=== PATIENT | female | born 1995 | race African-American/Black ===

== ENCOUNTER 2018-03-30 06:40 | Inpatient (IN) ==
[2018-03-30 07:32] LABS: Baso % (Auto) 0.3 % (0.0-2.0); Hematocrit 31.3 % (35.0-46.0); Lymph # (Auto) 1.5 th/mm3 (1.0-4.8); Lymph % (Auto) 21.5 % (9.0-44.0); Mean Corpuscular Hemoglobin 24.3 pg (27.0-34.0); Mean Corpuscular Volume 75.9 fL (80.0-100.0); Mean Platelet Volume 7.7 fL (7.0-11.0); Mono # (Auto) 0.8 th/mm3 (0.0-0.9); Mono % (Auto) 11.3 % (0.0-8.0); Neut # (Auto) 4.6 th/mm3 (1.8-7.7); Neut % (Auto) 66.9 % (16.0-70.0); Platelet Count 306 th/mm3 (150-450); Red Blood Count 4.12 mil/mm3 (4.00-5.30); Red Cell Distribution Width 15.4 % (11.6-17.2); White Blood Count 6.9 th/mm3 (4.0-11.0)
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
[2018-03-30 07:47] LABS: Amphetamine Screen,Urine Neg (Neg); Barbiturate Screen,Urine Neg (Neg); Cannabinoid Screen,Urine Pos (Neg); Cocaine Screen,Urine Neg (Neg)
[2018-03-30 07:50] LABS: Alanine Aminotransferase 26 U/L (9-42); Albumin 4.1 g/dL (3.4-5.0); Anion Gap 9 meq/L (5-15); Aspartate Aminotransferase 41 U/L (16-38); Blood Urea Nitrogen 11 mg/dL (7-18); Calcium 8.8 mg/dL (8.5-10.1); Carbon Dioxide 23.3 meq/L (21.0-32.0); Chloride 107 meq/L (98-107); Glomerular Filtration Rate 79 mL/min (>89); Glucose,Random 109 mg/dL (74-106); Magnesium 1.9 mg/dL (1.5-2.5); Potassium 3.2 meq/L (3.5-5.1); Sodium 139 meq/L (136-145)
[2018-03-30 07:51] LABS: Opiate Screen,Urine Neg (Neg)
[2018-03-30] MEDS ORDERED: Haloperidol Inj 5 MG/ML Ampul IM ONE ×2 (07:52→15:40)
[2018-03-30 08:00] LABS: Alkaline Phosphatase 71 U/L (45-117)
--- NOTE | 2018-03-30 15:38 | ED ---
HPI - Psych - General Source: patient, police Mode of arrival: other (police) Limitations: no limitations - History of Present Illness Duration: changing over time History of same: No - General Chief Complaint: Psychiatric Symptoms Stated Complaint: etoh/DBPD Time Seen by Provider: 03/30/18 06:49 - Related Data Home Medications Medication Instructions Recorded Confirmed No Known Home Medications 03/30/18 03/30/18 Allergies Allergy/AdvReac Type Severity Reaction Status Date / Time No Known Allergies Allergy Verified 03/30/18 06:49 PMFSH - History History Provided By: Patient - Medical History Medical History: Medical History (Last Reviewed 03/30/18 @ 07:34 by Evelyne Peña) Patient denies medical problems - Surgical History Surgical History: Surgical History (Last Reviewed 03/30/18 @ 07:35 by Evelyne Peña) No history of previous surgery - Tobacco History Second Hand Smoke Exposure: Yes Tobacco Use In Past 30 Days: Yes Smoking Status: Current every day smoker Tobacco Type: Cigarettes - Alcohol History How Often Do You Have a Drink Containing Alcohol: Never - Substance Use History Substance History: Active Abuse - Substance Use Type Marijuana Route Used: Inhalation Reason for Use: Calm Down, Feels Good - Travel History Recent Travel in the [place] Within the Last 8 Weeks: No Recent Travel Out of the Country Within the Last 8 Weeks: No - Immunization History Tetanus Immunization: >5 Years Physical Exam - General Limitations: altered mental status Initial Documented Vital Signs Temperature 98.5 F 03/30/18 06:47 Pulse Rate 108 H 03/30/18 06:47 Respiratory Rate 18 03/30/18 06:47 Blood Pressure 139/80 03/30/18 06:47 Pulse Oximetry 100 03/30/18 06:47 Last Documented Vital Signs Temperature 98.0 F 03/30/18 13:00 Pulse Rate 68 03/30/18 13:00 Respiratory Rate 16 03/30/18 13:00 Blood Pressure 122/85 03/30/18 13:00 Pulse Oximetry 100 03/30/18 13:00 MDM - Psych - Lab Data Result diagrams: 03/30/18 07:05 03/30/18 07:05 - Lab Data Lab Results 03/30/18 03/30/18 03/30/18 Range/Units 07:05 07:05 07:19 WBC 6.9 (4.0-11.0) th/mm3 RBC 4.12 (4.00-5.30) mil/mm3 Hgb 10.0 L (11.6-15.3) gm/dL Hct 31.3 L (35.0-46.0) % MCV 75.9 L (80.0-100.0) fL MCH 24.3 L (27.0-34.0) pg MCHC 32.0 (32.0-36.0) % RDW 15.4 (11.6-17.2) % Plt Count 306 (150-450) th/mm3 MPV 7.7 (7.0-11.0) fL Neut % (Auto) 66.9 (16.0-70.0) % Lymph % (Auto) 21.5 (9.0-44.0) % [place] % (Auto) 11.3 H (0.0-8.0) % Eos % (Auto) 0.0 (0.0-4.0) % Baso % (Auto) 0.3 (0.0-2.0) % Neut # (Auto) 4.6 (1.8-7.7) th/mm3 Lymph # (Auto) 1.5 (1.0-4.8) th/mm3 [place] # (Auto) 0.8 (0.0-0.9) th/mm3 Eos # (Auto) 0.0 (0.0-0.4) th/mm3 Baso # (Auto) 0.0 (0.0-0.2) th/mm3 WBC Differential . Differential Comment Auto diff final Sodium 139 (136-145) meq/L Potassium 3.2 L (3.5-5.1) meq/L Chloride 107 (98-107) meq/L Carbon Dioxide 23.3 (21.0-32.0) meq/L Anion Gap 9 (5-15) meq/L BUN 11 (7-18) mg/dL Creatinine 0.91 (0.50-1.00) mg/dL Estimated GFR 79 L (>89) mL/min Random Glucose 109 H (74-106) mg/dL Calcium 8.8 (8.5-10.1) mg/dL Magnesium 1.9 (1.5-2.5) mg/dL Total Bilirubin 0.5 (0.2-1.0) mg/dL AST 41 H (16-38) U/L ALT 26 (9-42) U/L Alkaline Phosphatase 71 (45-117) U/L Total Protein 8.0 (6.4-8.2) g/dL Albumin 4.1 (3.4-5.0) g/dL TSH 1.440 (0.358-3.740) uIU/mL Urine Opiates Screen Neg (Neg) Ur Barbiturates Screen Neg (Neg) Ur Amphetamines Screen Neg (Neg) U Benzodiazepines Scrn Neg (Neg) Urine Cocaine Screen Neg (Neg) U Cannabinoids Screen Pos H (Neg) Serum Alcohol Less than 3 (0-5) mg/dL
[2018-03-31] MEDS ORDERED: Haloperidol Inj 5 MG/ML Ampul ONE ×2 (06:07→08:07)
[2018-03-31] MEDS ORDERED: OLANZapine 10 MG ODT Tablet PO ONE (06:29)
[2018-03-31] MEDS ORDERED: Haloperidol Inj 5 MG/ML Ampul IM ONE (07:59)
[2018-03-31] MEDS ORDERED: Haloperidol Inj 5 MG/ML Ampul IV.PUSH PRN (08:10)
[2018-03-31] MEDS ORDERED: Bisacodyl 10 MG Supp RECTAL PRN (08:10)
[2018-03-31] MEDS ORDERED: Aluminum/Magnesium/Simethacone Susp 30 ML UDC PO PRN (08:10)
[2018-03-31] MEDS: Senna/Docusate Sodium 8.6/50 MG Tablet PO SCH ×2 (12:31→21:06)
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
[2018-04-01] MEDS: Senna/Docusate Sodium 8.6/50 MG Tablet PO SCH ×2 (08:36→20:39)
[2018-04-01 10:31] LABS: Anion Gap 13 meq/L (5-15); Blood Urea Nitrogen 11 mg/dL (7-18); Calcium 9.1 mg/dL (8.5-10.1); Carbon Dioxide 23.5 meq/L (21.0-32.0); Chloride 104 meq/L (98-107); Glomerular Filtration Rate Greater Than 89 mL/min (>89); Glucose,Random 63 mg/dL (74-106); Potassium 3.1 meq/L (3.5-5.1); Sodium 140 meq/L (136-145)
[2018-04-01 10:37] LABS: Chol/HDL Ratio 1.94 Ratio; Cholesterol 155 mg/dL (120-200); HDL Cholesterol 79.8 mg/dL (40.0-60.0); LDL Cholesterol,Calculated 64 mg/dL (0-99); Triglycerides 54 mg/dL (42-150)
[2018-04-01] MEDS ORDERED: Haloperidol Inj 5 MG/ML Ampul IM ONE (10:45)
--- NOTE | 2018-04-01 10:45 | P.CONPSY ---
Provisional Diagnosis Admission Date: March 31, 2018 08:16 [place] I.: Unspecified psychosis,r/o substance-induced psychosis, r/o bipolar disorder, manic episode , r/o schizophrenia, cannabis use disorder, [place] II.: Cluster B traits, rule out borderline personality disorder [place] III.: No significant medical history History of Present Illness Service: Psychiatry Primary Care Provider: UNKNOWN History of Present Illness: HPI: 22-year-old -[place] female who after work in a local [employer] was wandering about knocking on doors and asking people if they had a manager auto for her cell phone. She claims in incredible circum-substantial pressured rapidfire speech that the police picked her up and brought her to the ED. The police report states that she was lying in the street. Patient admits to daily use of marijuana and alcohol but denies use of cocaine. Patient lives with her grandfather who she claims is schizophrenic and is dying of cardiac disease while using cocaine. At the point of describing her grandfathers eminent demise the patient became very tearful her rapid speech and did for a moment transfixed with the fixed stare and no movements of the head or limbs or trunk but was streaming tears. On the unit the patient was almost immediately accosted by a male patient who required staffs redirection so the patient could be interviewed. Later on 1 of the nurses complained that the patient had been "hitting on her". Later I received a call from the floor that the patient bills been attacking 1 of the nurses and would require another ETO similar to what she received in the ED. I support the Hess act first opinion and feel the patient is a danger to herself and others, yet competent to decide whether or not she will accept medications. Unfortunately, the patient's mistrust or perhaps even paranoia will make it impossible to treat without repeated ETO's. Review of Systems ROS: No physical complaints. The patient does appear intermittently paranoid. PMFSH - History History Provided By: Medical Record, Manager Internet / EMT - Medical History Medical History: Medical History (Last Reviewed 03/30/18 @ 07:34 by Eveylne Peña) Patient denies medical problems - Surgical History Surgical History: Surgical History (Last Reviewed 03/30/18 @ 07:35 by Evelyne Peña) No history of previous surgery - Tobacco History Second Hand Smoke Exposure: No Tobacco Use In Past 30 Days: No Smoking Status: Never smoker Tobacco Type: Cigarettes - Alcohol History How Often Do You Have a Drink Containing Alcohol: Never - Substance Use History Substance History: Active Abuse - Substance Use Type Marijuana Status: Active Route Used: Inhalation Frequency: daily Last Used: yesterday Reason for Use: Calm Down - Travel History Recent Travel in the [place] Within the Last 8 Weeks: No Recent Travel Out of the Country Within the Last 8 Weeks: No - Immunization History Tetanus Immunization: Unable to Assess Hx Influenza Vaccine This Season: Yes Medications and Allergies Active Medications: Active Medications Al Hydrox/Mg Hydrox/Simethicone (Mag-Al Plus Susp Liq) 30 ml PO Q6H PRN PRN Reason: DYSPEPSIA Al Hydroxide/Mg Hydroxide (Milk Of Magnesia Liq) 30 ml PO Q12H PRN PRN Reason: Mild Constipation Bisacodyl (Dulcolax Supp) 10 mg RECTAL DAILY PRN PRN Reason: SEVERE CONSITIPATION Diphenhydramine HCl (Benadryl) 25 mg PO Q4H PRN PRN Reason: EXTRA PYRAMIDAL SYMPTOMS Flumazenil (Romazicon Inj) 0.2 mg IV.PUSH Q1M PRN PRN Reason: OVERSEDATION Haloperidol Lactate (Haldol Inj) 1 mg IV.PUSH Q15M PRN PRN Reason: for severe agitation Lactulose (Lactulose Liq) 30 ml PO DAILY PRN PRN Reason: SEVERE CONSITIPATION Lorazepam (Ativan) 1 mg PO Q4H PRN PRN Reason: for CIWA 8-10 Lorazepam (Ativan) 2 mg PO Q2H PRN PRN Reason: for CIWA 11-14 Lorazepam (Ativan Inj) 2 mg IV.PUSH Q2H PRN PRN Reason: for CIWA 11-14 Lorazepam (Ativan Inj) 2 mg IV.PUSH Q1H PRN PRN Reason: for CIWA 15-20 Lorazepam (Ativan Inj) 2 mg IV.PUSH Q15M PRN PRN Reason: for CIWA > 20 Lorazepam (Ativan Inj) 1 mg IV.PUSH Q4H PRN PRN Reason: for CIWA 8-10 Senna/Docusate Sodium (Aylin-Colace) 1 tab PO BID NING Last Admin: 04/01/18 08:36 Dose: Not Given Sennosides (Senokot) 17.2 mg PO Q12H PRN PRN Reason: Moderate Constipation Allergies Allergy/AdvReac Type Severity Reaction Status Date / Time No Known Allergies Allergy Verified 03/30/18 06:49 Home Medications Medication Instructions Recorded Confirmed Type No Known Home Medications 03/30/18 03/30/18 History Exam Vital signs: Vital Signs 03/31/18 11:45 03/31/18 18:19 Temperature 97.4 F L 98.3 F Pulse Rate 92 H 94 H Respiratory Rate 18 14 Blood Pressure 124/63 116/59 L Pulse Oximetry 98 98 Intake & Output 03/31/18 04/01/18 04/01/18 18:59 06:59 18:59 Weight 57.5 kg Other: Weight On Admission 57.5 kg Mental Status Examination Appearance: Appropriate Consciousness: Alert Orientation: x4 Motor Activity: Normal gait Speech: Pressured, Rapid Language: Adequate Fund of Knowledge: Adequate Attention and Concentration: Adequate Memory: Impaired Mood: Angry, Irritable Affect: Irritable, Labile Thought Process & Associations: Circumstantial, Disorganized Thought Content: Delusional Delusion Type: None, Bizarre, Paranoid, Somatic Suicidal Ideation: No Suicidal Plan: No Suicidal Intention: No Homicidal Ideation: No Homicidal Plan: No Homicidal Intention: No Insight: Poor Judgment: Poor Assessment and Plan - Assessment (1) Unspecified psychosis Code(s): F29 - Unspecified psychosis not due to a substance or known physiological condition Status: Acute - Plan Plan: On psychiatric evaluation today the patient presents guarded, irritable, initially very resistant and oppositional to the psychiatric interview. The patient does not remember the reason she is in the hospital, she says that she was brought by the police for no reason. The patient is having visible visual and auditory hallucinations, she is very paranoid and suspicious, stating that a man with the name of Mr. Elías Leger is looking her to kill her, and she does not know if that person is here connected with the nurses and with the camera in the room. As the patient is being interviewed, the patient becomes quite agitated, verbally hostile and aggressive, tried to run out of the ER and has to be manually and chemically restrained. She was medicated with Haldol 5 mg, Ativan 2 mg IM in order to calm her down. This was actually the second set of IM medication in less than 12 hours. Given her level of psychosis the patient poses danger to self and others, she need psychiatric admission for stabilization. Unclear at this point if the source of the psychosis is drug- induced or a primary psychosis, also personality disorder needs to be high in the differential. Transfer patient to 2700 unit. Start Haldol 5 mg twice daily for psychosis, Benadryl 25 mg twice daily for EPS. Try to get collateral information. Justification for Continued Inpatient Stay: Patient is intermittently psychotic, depressed and unpredictable. She is competent to decide whether or not to take medication and is refusing.
--- NOTE | 2018-04-01 14:07 | P.CONIM ---
History of Present Illness Reason for Consult: Evaluate and treat anemia Primary Care Provider: UNKNOWN Chief Complaint: Erratic behavior History of Present Illness: This is a 22-year-old female who was brought in by law enforcement because of erratic behavior in the street. Patient has history of bipolar disorder and cannabis abuse. Consultation was been requested by her attending to evaluate and manage anemia. At this time, patient is calm and cooperative after receiving Haldol for aggressive behavior. States she is not surprised to have low blood counts be because she previously received bad Depo shot. She denies weakness, dizziness, chest pain, shortness of breath and palpitations. No abnormal bleeding. She has regular monthly menstruation lasting 3-7 days with moderate amount occasionally with blood clots currently on her third day. All other systems reviewed negative Review of Systems Review of Systems: all other systems reviewed are negative [facility] Medical History Medical History Patient denies medical problems (Acute) Surgical History Surgical History No history of previous surgery (Acute) Social History Social History Substance History: Active Abuse Second Hand Smoke Exposure: No Smoking Status: Never smoker Tobacco Type: Cigarettes How Often Do You Have a Drink Containing Alcohol: Never Recent Travel in [facility] within the Last 8 Weeks: No Recent Out of Country Travel within the Last 8 Weeks: No Substance Abuse Detail Marijuana: Substance Use Status: Active Route Used Substance Abuse: Inhalation Substance Frequency: daily Last Used: yesterday Reason for Use: Calm Down Immunization History Tetanus Immunization: Unable to Assess Hx Influenza Vaccine This Season: Yes Medications and Allergies Allergies Allergy/AdvReac Type Severity Reaction Status Date / Time No Known Allergies Allergy Verified 03/30/18 06:49 Home Medications Medication Instructions Recorded Confirmed Type No Known Home Medications 03/30/18 03/30/18 History Active Medications: Active Medications Al Hydrox/Mg Hydrox/Simethicone (Mag-Al Plus Susp Liq) 30 ml PO Q6H PRN PRN Reason: DYSPEPSIA Al Hydroxide/Mg Hydroxide (Milk Of Magnesia Liq) 30 ml PO Q12H PRN PRN Reason: Mild Constipation Bisacodyl (Dulcolax Supp) 10 mg RECTAL DAILY PRN PRN Reason: SEVERE CONSITIPATION Diphenhydramine HCl (Benadryl) 25 mg PO Q4H PRN PRN Reason: EXTRA PYRAMIDAL SYMPTOMS Flumazenil (Romazicon Inj) 0.2 mg IV.PUSH Q1M PRN PRN Reason: OVERSEDATION Haloperidol Lactate (Haldol Inj) 1 mg IV.PUSH Q15M PRN PRN Reason: for severe agitation Lactulose (Lactulose Liq) 30 ml PO DAILY PRN PRN Reason: SEVERE CONSITIPATION Lorazepam (Ativan) 1 mg PO Q4H PRN PRN Reason: for CIWA 8-10 Lorazepam (Ativan) 2 mg PO Q2H PRN PRN Reason: for CIWA 11-14 Lorazepam (Ativan Inj) 2 mg IV.PUSH Q2H PRN PRN Reason: for CIWA 11-14 Lorazepam (Ativan Inj) 2 mg IV.PUSH Q1H PRN PRN Reason: for CIWA 15-20 Lorazepam (Ativan Inj) 2 mg IV.PUSH Q15M PRN PRN Reason: for CIWA > 20 Lorazepam (Ativan Inj) 1 mg IV.PUSH Q4H PRN PRN Reason: for CIWA 8-10 Senna/Docusate Sodium (Aylin-Colace) 1 tab PO BID NING Last Admin: 04/01/18 08:36 Dose: Not Given Sennosides (Senokot) 17.2 mg PO Q12H PRN PRN Reason: Moderate Constipation Physical Exam Vital signs: Vital Signs 03/31/18 18:19 Temperature 98.3 F Pulse Rate 94 H Respiratory Rate 14 Blood Pressure 116/59 L Pulse Oximetry 98 Intake & Output 03/31/18 04/01/18 04/01/18 18:59 06:59 18:59 Weight 57.5 kg Other: Weight On Admission 57.5 kg Narrative: GENERAL: Well-developed, well-nourished in no distress SKIN: Warm and dry. HEAD: Atraumatic. Normocephalic. EYES: Pupils equal and round. No scleral icterus. No injection or drainage. ENT: No nasal bleeding or discharge. Mucous membranes pink and moist. NECK: Trachea midline. No JVD. CARDIOVASCULAR: Regular rate and rhythm. RESPIRATORY: No accessory muscle use. Clear to auscultation. Breath sounds equal bilaterally. GASTROINTESTINAL: Abdomen soft, non-tender, nondistended. MUSCULOSKELETAL: Extremities without clubbing, cyanosis, or edema. No obvious deformities. NEUROLOGICAL: Awake and alert. No obvious cranial nerve deficits. Motor grossly within normal limits. Five out of 5 muscle strength in the arms and legs. Normal speech. PSYCHIATRIC: Appropriate mood and affect; insight and judgment normal. Results Labs CBC & Chem 7: 03/30/18 07:05 04/01/18 09:20 Assessment and Plan (1) Unspecified psychosis: Code(s): F29 - Unspecified psychosis not due to a substance or known physiological condition Status: Acute Plan This is a 22-year-old female who was brought in by law enforcement because of erratic behavior in the street. Patient has history of bipolar disorder and cannabis abuse. Consultation was been requested by her attending to evaluate and manage anemia. Microcytic anemia likely related to her menstrual loss. She is asymptomatic with a hemoglobin of 10. Obtain iron studies and monitor. Hypokalemia replace with 40 mg p.o. potassium. Check magnesium and replete accordingly DVT prophylaxis with early ambulation _ (1) Unspecified psychosis Qualifiers: Psychosis type: Schizoaffective disorder type: Schizophrenia type:
[2018-04-01 16:34] LABS: Hemoglobin A1c 5.5 % (4.3-6.0)
--- NOTE | 2018-04-02 07:43 | P.PNPSY ---
Subjective Remarks: Subjective: Record reviewed discussed with nursing staff and interviewed patient in the day room. Patient has been childlike and understands very little. Yesterday she required an ETO of 5 mg of Haldol and 2 mg of Ativan IM. Reports that this had little effect on the patient and suggested she would require more. The patient did calm down enough that she had the internal medicine consult. The patient at first was agreeable to taking Zyprexa but only after I explained to her that it was not what she thought I said "Dieprexa " but Zyprexa. Originally I felt the patient was capable of making decisions so obvious that her level of anxiety and maturity is such that we are at present treating someone with developmental level of between 6 and 8 years of age. She has been sexually inappropriate on the unit and continues in danger of acting out with both male and female patients. I feel the patient competence is in question, but will continue to attempt to explain to her that the medicine is to help her. Her only focus at this time is to discharge and when told she would have to be observed for a few days before she could be discharged she retracted her original consent to take medicine. Review of Systems Patient seems quite regressed. She is tearful and has little or no understanding of her health. Attempting ROS with the patient is like talking to a 8-year-old child. Patient claims to have graduated from high school. Mental Status Examination Appearance: Appropriate Consciousness: Alert Orientation: x4 Motor Activity: Normal gait Speech: Pressured, Rapid Language: Adequate Fund of Knowledge: Adequate Attention and Concentration: Adequate Memory: Impaired Mood: Angry, Oppositional, Irritable Affect: Irritable, Labile Thought Process & Associations: Circumstantial, Disorganized Thought Content: Other (Extremely immature) Delusion Type: None, Paranoid Suicidal Ideation: No Suicidal Plan: No Suicidal Intention: No Homicidal Ideation: No Homicidal Plan: No Homicidal Intention: No Insight: Poor Judgment: Poor Assessment and Plan - Assessment (1) Unspecified psychosis Code(s): F29 - Unspecified psychosis not due to a substance or known physiological condition Status: Acute - Plan Plan: On psychiatric evaluation today the patient presents guarded, irritable, initially very resistant and oppositional to the psychiatric interview. The patient does not remember the reason she is in the hospital, she says that she was brought by the police for no reason. The patient is having visible visual and auditory hallucinations, she is very paranoid and suspicious, stating that a man with the name of Mr. Elías Leger is looking her to kill her, and she does not know if that person is here connected with the nurses and with the camera in the room. As the patient is being interviewed, the patient becomes quite agitated, verbally hostile and aggressive, tried to run out of the ER and has to be manually and chemically restrained. She was medicated with Haldol 5 mg, Ativan 2 mg IM in order to calm her down. This was actually the second set of IM medication in less than 12 hours. Given her level of psychosis the patient poses danger to self and others, she need psychiatric admission for stabilization. Unclear at this point if the source of the psychosis is drug- induced or a primary psychosis, also personality disorder needs to be high in the differential. Transfer patient to 2700 unit. Start Haldol 5 mg twice daily for psychosis, Benadryl 25 mg twice daily for EPS. Try to get collateral information. Patient's behavior and responses to questions today indicate an extreme immaturity coupled perhaps with a regression. Patient is demonstrated a tolerance to an ETO 5 mg Haldol and 2 mg of Ativan that is not explained by her history of tolerance. Patient is a daily user of cannabis, but denies use of cocaine or significant amounts of alcohol. Patient will be started on Zyprexa 5 mg twice daily with titration upward as needed. Justification for Continued Inpatient Stay: Patient is at risk for decompensation at a lower level of care
[2018-04-02 08:44] LABS: Anion Gap 10 meq/L (5-15); Blood Urea Nitrogen 12 mg/dL (7-18); Calcium 9.3 mg/dL (8.5-10.1); Carbon Dioxide 24.9 meq/L (21.0-32.0); Chloride 105 meq/L (98-107); Glomerular Filtration Rate Greater Than 89 mL/min (>89); Glucose,Random 73 mg/dL (74-106); Magnesium 2.1 mg/dL (1.5-2.5); Potassium 3.5 meq/L (3.5-5.1); Sodium 140 meq/L (136-145)
[2018-04-02 08:45] LABS: % Iron Saturation 6.9 % (20-50); Iron 38 mcg/dL (50-170); Total Iron Binding Capacity 547 mcg/dL (250-450)
[2018-04-02 08:48] LABS: Ferritin 19 ng/mL (8-252)
[2018-04-02] MEDS: Senna/Docusate Sodium 8.6/50 MG Tablet PO SCH ×2 (08:49→21:00)
--- NOTE | 2018-04-02 12:24 | P.PNIM ---
Subjective Interval history: Follow-up visit for anemia, nurse does not report any acute events. Patient is seen and examined in her room with nurse present. She denies any dizziness, lightheadedness, N/V/D, cough or SOB. Discussed RITESH with patient and iron supplementation as well as possible side effects, verbalized understanding. Physical Exam Vital signs: Vital Signs 04/01/18 15:47 04/01/18 20:00 04/02/18 06:13 Temperature 98.6 F 98 F Pulse Rate 94 H 88 Respiratory Rate 18 16 18 Blood Pressure 110/68 134/60 Pulse Oximetry 98 97 Intake & Output 04/01/18 04/02/18 04/02/18 18:59 06:59 18:59 Weight 57 kg Narrative: GENERAL: Well-developed, well-nourished in no distress SKIN: Warm and dry. CARDIOVASCULAR: Regular rate and rhythm. RESPIRATORY: No accessory muscle use. Clear to auscultation. Breath sounds equal bilaterally. GASTROINTESTINAL: Abdomen soft, non-tender, nondistended. NEUROLOGICAL: Awake and alert. No obvious cranial nerve deficits. Motor grossly within normal limits. Normal speech. Results Labs CBC & Chem 7: 03/30/18 07:05 04/02/18 06:20 Assessment and Plan (1) Unspecified psychosis: Code(s): F29 - Unspecified psychosis not due to a substance or known physiological condition Status: Acute Plan This is a 22-year-old female who was brought in by law enforcement because of erratic behavior in the street. Patient has history of bipolar disorder and cannabis abuse. Consultation was been requested by her attending to evaluate and manage anemia. Microcytic anemia likely related to her menstrual loss. She is asymptomatic with a hemoglobin of 10. Iron studies consistent with RITESH, started on iron supplementation. Discussed medication and possible side effects with patient. Hypokalemia s/p 40 Meq p.o. potassium. Recheck K 3.5, give additional 20 of KCL , mag stable DVT prophylaxis with early ambulation Patient medically stable. [facility] will sign off, reconsult if needed. Discussed Condition With: Patient and nurse Progress Note: Quality VTE Deep Vein Thrombosis/Pulmonary Embolism Present on Admission: No _ (1) Unspecified psychosis Qualifiers: Psychosis type: Schizoaffective disorder type: Schizophrenia type:
[2018-04-03] MEDS: Ferrous Sulfate 325 MG Tablet PO SCH (09:03)
[2018-04-03] MEDS: Senna/Docusate Sodium 8.6/50 MG Tablet PO SCH ×2 (09:04→20:51)
[2018-04-03] MEDS: LORazepam 1 MG Tablet PO PRN ×2 (09:06→13:53)
--- NOTE | 2018-04-03 11:36 | P.PNPSY ---
Subjective Chief Complaint: Denies complaints Remarks: Subjective: Patient has demonstrated multiple attempts to engage in sexual activity focusing primarily on the nursing staff, but on others as well. Today the patient seems far less tearful there is none of the rapidfire associations and childlike behavior. To taking the Zyprexa and appears to have decided the best course would be to cooperate with her treatment. There appears to be a greater likelihood that the patient's behavior is related to drugs, since she seems to be improving too rapidly to adjust that her ETO's and a few doses of Zyprexa could have made such a remarkable difference. Review of Systems No new complaint Mental Status Examination Appearance: Appropriate Consciousness: Alert Orientation: x4 Motor Activity: Normal gait Speech: Unremarkable Language: Adequate Fund of Knowledge: Adequate Attention and Concentration: Adequate Memory: Unremarkable Mood: Oppositional Affect: Labile Thought Process & Associations: Intact Thought Content: Appropriate Delusion Type: None, Other (Does not appear to be internally preoccupied but continues with inappropriate behavior on the unit) Suicidal Ideation: No Suicidal Plan: No Suicidal Intention: No Homicidal Ideation: No Homicidal Plan: No Homicidal Intention: No Insight: Poor Judgment: Poor Assessment and Plan - Assessment (1) Unspecified psychosis Code(s): F29 - Unspecified psychosis not due to a substance or known physiological condition Status: Acute - Plan Plan: On psychiatric evaluation today the patient presents guarded, irritable, initially very resistant and oppositional to the psychiatric interview. The patient does not remember the reason she is in the hospital, she says that she was brought by the police for no reason. The patient is having visible visual and auditory hallucinations, she is very paranoid and suspicious, stating that a man with the name of Mr. Elías Leger is looking her to kill her, and she does not know if that person is here connected with the nurses and with the camera in the room. As the patient is being interviewed, the patient becomes quite agitated, verbally hostile and aggressive, tried to run out of the ER and has to be manually and chemically restrained. She was medicated with Haldol 5 mg, Ativan 2 mg IM in order to calm her down. This was actually the second set of IM medication in less than 12 hours. Given her level of psychosis the patient poses danger to self and others, she need psychiatric admission for stabilization. Unclear at this point if the source of the psychosis is drug- induced or a primary psychosis, also personality disorder needs to be high in the differential. Transfer patient to 2700 unit. Start Haldol 5 mg twice daily for psychosis, Benadryl 25 mg twice daily for EPS. Try to get collateral information. Patient's behavior and responses to questions today indicate an extreme immaturity coupled perhaps with a regression. Patient is demonstrated a tolerance to an ETO 5 mg Haldol and 2 mg of Ativan that is not explained by her history of tolerance. Patient is a daily user of cannabis, but denies use of cocaine or significant amounts of alcohol. Patient will be started on Zyprexa 5 mg twice daily with titration upward as needed. Justification for Continued Inpatient Stay: Patient is improved, but inappropriate behavior will suggest some boundary issues and the possibility of a rapid decompensation at a lower level of care.
[2018-04-03] MEDS ORDERED: Acetaminophen 500 MG Tablet PO PRN (22:00)
[2018-04-04] MEDS: Senna/Docusate Sodium 8.6/50 MG Tablet PO SCH ×2 (08:19→20:09)
[2018-04-04] MEDS: Ferrous Sulfate 325 MG Tablet PO SCH (08:19)
[2018-04-04] MEDS ORDERED: Haloperidol Inj 5 MG/ML Ampul IM ONE (14:15)
--- NOTE | 2018-04-04 14:48 | P.PNPSY ---
Subjective Chief Complaint: Denies complaints Remarks: Patient seen for follow-up, chart reviewed, patient discussed with nursing staff ; we reviewed the patient's mood, thoughts, and behaviors from overnight and this morning. Nurse reports that the patient was awake all night and discharged focus. She denies suicidal or homicidal ideations and denies auditory or visual hallucinations. The patient has been intermittently verbally threatening and aggressive with staff. She is intrusive with patients as well as staff. She was reportedly doing better this morning but after speaking with the provider and being informed that she would not be discharged this weekend she became agitated and and was provided Ativan 2 mg p.o. x1 but this was ineffective after 45 minutes and she became increasingly violent and required an emergency treatment order with Haldol 10 IM and Benadryl 50mg IM. Mental Status Examination Appearance: Appropriate Consciousness: Alert Orientation: x4 Motor Activity: Normal gait Speech: Unremarkable Language: Adequate Fund of Knowledge: Adequate Attention and Concentration: Adequate Memory: Unremarkable Mood: Oppositional Affect: Labile Thought Process & Associations: Intact Thought Content: Appropriate Hallucination Type: Auditory, Visual Delusion Type: None, Other (Does not appear to be internally preoccupied but continues with inappropriate behavior on the unit) Suicidal Ideation: No Suicidal Plan: No Suicidal Intention: No Homicidal Ideation: No Homicidal Plan: No Homicidal Intention: No Insight: Poor Judgment: Poor Assessment and Plan - Assessment (1) Unspecified psychosis Code(s): F29 - Unspecified psychosis not due to a substance or known physiological condition Status: Acute - Plan Plan: On psychiatric evaluation today the patient presents guarded, irritable, initially very resistant and oppositional to the psychiatric interview. The patient does not remember the reason she is in the hospital, she says that she was brought by the police for no reason. The patient is having visible visual and auditory hallucinations, she is very paranoid and suspicious, stating that a man with the name of Mr. Elías Leger is looking her to kill her, and she does not know if that person is here connected with the nurses and with the camera in the room. As the patient is being interviewed, the patient becomes quite agitated, verbally hostile and aggressive, tried to run out of the ER and has to be manually and chemically restrained. She was medicated with Haldol 5 mg, Ativan 2 mg IM in order to calm her down. This was actually the second set of IM medication in less than 12 hours. Given her level of psychosis the patient poses danger to self and others, she need psychiatric admission for stabilization. Unclear at this point if the source of the psychosis is drug- induced or a primary psychosis, also personality disorder needs to be high in the differential. Transfer patient to 2700 unit. Start Haldol 5 mg twice daily for psychosis, Benadryl 25 mg twice daily for EPS. Try to get collateral information. Patient's behavior and responses to questions today indicate an extreme immaturity coupled perhaps with a regression. Patient is demonstrated a tolerance to an ETO 5 mg Haldol and 2 mg of Ativan that is not explained by her history of tolerance. Patient is a daily user of cannabis, but denies use of cocaine or significant amounts of alcohol. Patient will be started on Zyprexa 5 mg twice daily with titration upward as needed. April 04, 2018: Unsatisfactory response to treatment; the patient remains disorganized and reckless with a decreased need for sleep indicative of a mixed manic episode. Patient agrees with recommendation for an increase of Zyprexa but became increasingly agitated when told she would not be discharged today and did require an emergency treatment order this afternoon. Continue inpatient psychiatric treatment and stabilization. Increase Zyprexa to 10 mg twice a day for mixed manic behaviors. Discharge planning: The patient reportedly has support from her mother is willing to pick her up and take her back to [place] when she is further stabilized. Justification for Continued Inpatient Stay: Patient remains an elevated risk for self-harm by acting out on suicidal ideations and risk of harm to others by acting out on paranoia and will require further inpatient stabilization and preparation of a safe discharge plan. Moving patient to a less restrictive environment at this time may result in decompensation.
[2018-04-04] MEDS: OLANZapine 10 MG Tablet PO SCH (20:09)
[2018-04-04] MEDS ORDERED: Haloperidol Inj 5 MG/ML Ampul IM SCH (21:23)
[2018-04-05] MEDS: OLANZapine 10 MG Tablet PO SCH ×2 (08:08→21:03)
[2018-04-05] MEDS: Ferrous Sulfate 325 MG Tablet PO SCH (08:08)
[2018-04-05] MEDS: Senna/Docusate Sodium 8.6/50 MG Tablet PO SCH ×2 (08:08→21:03)
--- NOTE | 2018-04-05 15:18 | P.PNPSY ---
Subjective Chief Complaint: Denies complaints Remarks: Patient seen for follow-up, chart reviewed, patient discussed with nursing staff ; we reviewed the patient's mood, thoughts, and behaviors from overnight and this morning. The patient had become acutely agitated after seeing the provider yesterday and not being discharged per her request. She required emergency treatment order in the early afternoon and then again in the late evening. The patient reportedly slept much better overnight and got approximately 6 hours of sleep. Today the patient was calm and cooperative in no longer intrusive with peers or staff. She was seen at bedside where she was sitting in bed reading a book. She continues to deny homicidal or suicidal ideations and denies hallucinations or delusions. She continues to express a believe that she is safe for discharge but she was redirectable and agreed with plan to continue with current inpatient treatment and observation and if behavior and thought processes remain stable then discharge planning can begin as early as tomorrow when the rest of the treatment team return. Mental Status Examination Appearance: Appropriate Consciousness: Alert Orientation: x4 Motor Activity: Normal gait Speech: Unremarkable Language: Adequate Fund of Knowledge: Adequate Attention and Concentration: Adequate Memory: Unremarkable Mood: Irritable Affect: Labile Thought Process & Associations: Intact Thought Content: Appropriate Hallucination Type: None Delusion Type: None Suicidal Ideation: No Suicidal Plan: No Suicidal Intention: No Homicidal Ideation: No Homicidal Plan: No Homicidal Intention: No Insight: Fair Judgment: Impulsive Assessment and Plan - Assessment (1) Bipolar I disorder, most recent episode (or current) manic with mixed features Code(s): F31.10 - Bipolar disorder, current episode manic without psychotic features, unspecified Status: Acute - Plan Plan: On psychiatric evaluation today the patient presents guarded, irritable, initially very resistant and oppositional to the psychiatric interview. The patient does not remember the reason she is in the hospital, she says that she was brought by the police for no reason. The patient is having visible visual and auditory hallucinations, she is very paranoid and suspicious, stating that a man with the name of Mr. Elías Leger is looking her to kill her, and she does not know if that person is here connected with the nurses and with the camera in the room. As the patient is being interviewed, the patient becomes quite agitated, verbally hostile and aggressive, tried to run out of the ER and has to be manually and chemically restrained. She was medicated with Haldol 5 mg, Ativan 2 mg IM in order to calm her down. This was actually the second set of IM medication in less than 12 hours. Given her level of psychosis the patient poses danger to self and others, she need psychiatric admission for stabilization. Unclear at this point if the source of the psychosis is drug- induced or a primary psychosis, also personality disorder needs to be high in the differential. Transfer patient to 2700 unit. Start Haldol 5 mg twice daily for psychosis, Benadryl 25 mg twice daily for EPS. Try to get collateral information. Patient's behavior and responses to questions today indicate an extreme immaturity coupled perhaps with a regression. Patient is demonstrated a tolerance to an ETO 5 mg Haldol and 2 mg of Ativan that is not explained by her history of tolerance. Patient is a daily user of cannabis, but denies use of cocaine or significant amounts of alcohol. Patient will be started on Zyprexa 5 mg twice daily with titration upward as needed. April 04, 2018: Unsatisfactory response to treatment; the patient remains disorganized and reckless with a decreased need for sleep indicative of a mixed manic episode. Patient agrees with recommendation for an increase of Zyprexa but became increasingly agitated when told she would not be discharged today and did require an emergency treatment order this afternoon. Continue inpatient psychiatric treatment and stabilization. Increase Zyprexa to 10 mg twice a day for mixed manic behaviors. Discharge planning: The patient reportedly has support from her mother is willing to pick her up and take her back to [place] when she is further stabilized. April 05, 2018: Fair response to treatment, the patient was much more calm and cooperative today and thoughts seem more organized. Patient finally got some good rest overnight after receiving to emergency treatment orders and an increase of her Zyprexa dose. The patient continues to insist that she has good support from her family and is willing to follow-up with outpatient care. Continue inpatient psychiatric treatment and stabilization. Continue Zyprexa 10 mg twice a day for mixed manic behaviors. Anticipate discharge as early as tomorrow if patient maintains her stable mood , behavior and thought processes. Justification for Continued Inpatient Stay: Patient remains an elevated risk for self-harm by self neglect and will require further inpatient stabilization and preparation of a safe discharge plan. Moving patient to a less restrictive environment at this time may result in decompensation.
[2018-04-06] MEDS: Senna/Docusate Sodium 8.6/50 MG Tablet PO SCH ×2 (08:32→20:14)
[2018-04-06] MEDS: OLANZapine 10 MG Tablet PO SCH ×2 (08:32→20:15)
[2018-04-06] MEDS: Ferrous Sulfate 325 MG Tablet PO SCH (08:32)
--- NOTE | 2018-04-06 12:17 | P.PNPSY ---
Subjective Chief Complaint: Denies complaints Remarks: Subjective: Record reviewed discussed with nursing staff regarding patient's mood behavior and sleep. Patient continues to have problems with sleep sleeping only about 4 hours at night. She remains hypersexual at times hyperverbal. She can suddenly become tearful when denied discharge. She remains childlike at times with behavior consistent with an 10-year-old attempting to influence on adults with either tears or seductive behavior which quickly becomes oppositional and angry when not given her way which at this point is totally focused on discharge. The patient's current medication seems inadequate and lithium will be added along with Seroquel. Review of Systems ROS no new complaints Mental Status Examination Appearance: Appropriate Consciousness: Alert Orientation: x4 Motor Activity: Normal gait Speech: Unremarkable Language: Adequate Fund of Knowledge: Adequate Attention and Concentration: Adequate Memory: Unremarkable Mood: Irritable Affect: Labile Thought Process & Associations: Intact Thought Content: Appropriate Hallucination Type: None Delusion Type: None Suicidal Ideation: No Suicidal Plan: No Suicidal Intention: No Homicidal Ideation: No Homicidal Plan: No Homicidal Intention: No Insight: Fair (Patient has insight of an 10-year-old) Judgment: Impulsive Assessment and Plan - Assessment (1) Bipolar I disorder, most recent episode (or current) manic with mixed features Code(s): F31.10 - Bipolar disorder, current episode manic without psychotic features, unspecified Status: Acute - Plan Plan: On psychiatric evaluation today the patient presents guarded, irritable, initially very resistant and oppositional to the psychiatric interview. The patient does not remember the reason she is in the hospital, she says that she was brought by the police for no reason. The patient is having visible visual and auditory hallucinations, she is very paranoid and suspicious, stating that a man with the name of Mr. Elías Leger is looking her to kill her, and she does not know if that person is here connected with the nurses and with the camera in the room. As the patient is being interviewed, the patient becomes quite agitated, verbally hostile and aggressive, tried to run out of the ER and has to be manually and chemically restrained. She was medicated with Haldol 5 mg, Ativan 2 mg IM in order to calm her down. This was actually the second set of IM medication in less than 12 hours. Given her level of psychosis the patient poses danger to self and others, she need psychiatric admission for stabilization. Unclear at this point if the source of the psychosis is drug- induced or a primary psychosis, also personality disorder needs to be high in the differential. Transfer patient to [id number] unit. Start Haldol 5 mg twice daily for psychosis, Benadryl 25 mg twice daily for EPS. Try to get collateral information. Patient's behavior and responses to questions today indicate an extreme immaturity coupled perhaps with a regression. Patient is demonstrated a tolerance to an ETO 5 mg Haldol and 2 mg of Ativan that is not explained by her history of tolerance. Patient is a daily user of cannabis, but denies use of cocaine or significant amounts of alcohol. Patient will be started on Zyprexa 5 mg twice daily with titration upward as needed. April 04, 2018: Unsatisfactory response to treatment; the patient remains disorganized and reckless with a decreased need for sleep indicative of a mixed manic episode. Patient agrees with recommendation for an increase of Zyprexa but became increasingly agitated when told she would not be discharged today and did require an emergency treatment order this afternoon. Continue inpatient psychiatric treatment and stabilization. Increase Zyprexa to 10 mg twice a day for mixed manic behaviors. Discharge planning: The patient reportedly has support from her mother is willing to pick her up and take her back to [place] when she is further stabilized. April 05, 2018: Fair response to treatment, the patient was much more calm and cooperative today and thoughts seem more organized. Patient finally got some good rest overnight after receiving to emergency treatment orders and an increase of her Zyprexa dose. The patient continues to insist that she has good support from her family and is willing to follow-up with outpatient care. Continue inpatient psychiatric treatment and stabilization. Continue Zyprexa 10 mg twice a day for mixed manic behaviors. Anticipate discharge as early as tomorrow if patient maintains her stable mood , behavior and thought processes. Justification for Continued Inpatient Stay: Patient remains manic and will need to increase medication to include lithium and Seroquel. Seroquel will be given at at bedtime and the lithium on a twice daily dosage.
[2018-04-07] MEDS: OLANZapine 10 MG Tablet PO SCH ×2 (08:34→20:27)
[2018-04-07] MEDS: Ferrous Sulfate 325 MG Tablet PO SCH (08:34)
[2018-04-07] MEDS: Senna/Docusate Sodium 8.6/50 MG Tablet PO SCH ×2 (08:34→20:27)
--- NOTE | 2018-04-07 10:56 | P.PNPSY ---
Subjective Chief Complaint: Denies complaints Remarks: Subjective: Patient is according to the staff much better behaved although she continues to be hypersexual and very busy on the unit. She is according to the evening staff sleeping better and not so hyperverbal. The unit staff did comment that the patient remains childlike and agreed that she behaves more like an 10-year-old and a 22-year-old. I discussed with the patient the possibility of discharge tomorrow since she seems to have reached baseline. Arrangements will be made to have the patient transported to either her grandfather are treated her mother in [place]. Review of Systems The patient denies any new complaints in the review of systems. Mental Status Examination Appearance: Appropriate Consciousness: Alert Orientation: x4 Motor Activity: Normal gait Speech: Unremarkable Language: Adequate Fund of Knowledge: Adequate Attention and Concentration: Adequate Memory: Unremarkable Mood: Irritable Affect: Appropriate Thought Process & Associations: Intact Thought Content: Appropriate Hallucination Type: None Delusion Type: None Suicidal Ideation: No Suicidal Plan: No Suicidal Intention: No Homicidal Ideation: No Homicidal Plan: No Homicidal Intention: No Insight: Fair (Patient has insight of an 10-year-old) Judgment: Impulsive Assessment and Plan - Assessment (1) Bipolar I disorder, most recent episode (or current) manic with mixed features Code(s): F31.10 - Bipolar disorder, current episode manic without psychotic features, unspecified Status: Acute - Plan Plan: On psychiatric evaluation today the patient presents guarded, irritable, initially very resistant and oppositional to the psychiatric interview. The patient does not remember the reason she is in the hospital, she says that she was brought by the police for no reason. The patient is having visible visual and auditory hallucinations, she is very paranoid and suspicious, stating that a man with the name of Mr. Elías Leger is looking her to kill her, and she does not know if that person is here connected with the nurses and with the camera in the room. As the patient is being interviewed, the patient becomes quite agitated, verbally hostile and aggressive, tried to run out of the ER and has to be manually and chemically restrained. She was medicated with Haldol 5 mg, Ativan 2 mg IM in order to calm her down. This was actually the second set of IM medication in less than 12 hours. Given her level of psychosis the patient poses danger to self and others, she need psychiatric admission for stabilization. Unclear at this point if the source of the psychosis is drug- induced or a primary psychosis, also personality disorder needs to be high in the differential. Transfer patient to 2700 unit. Start Haldol 5 mg twice daily for psychosis, Benadryl 25 mg twice daily for EPS. Try to get collateral information. Patient's behavior and responses to questions today indicate an extreme immaturity coupled perhaps with a regression. Patient is demonstrated a tolerance to an ETO 5 mg Haldol and 2 mg of Ativan that is not explained by her history of tolerance. Patient is a daily user of cannabis, but denies use of cocaine or significant amounts of alcohol. Patient will be started on Zyprexa 5 mg twice daily with titration upward as needed. April 04, 2018: Unsatisfactory response to treatment; the patient remains disorganized and reckless with a decreased need for sleep indicative of a mixed manic episode. Patient agrees with recommendation for an increase of Zyprexa but became increasingly agitated when told she would not be discharged today and did require an emergency treatment order this afternoon. Continue inpatient psychiatric treatment and stabilization. Increase Zyprexa to 10 mg twice a day for mixed manic behaviors. Discharge planning: The patient reportedly has support from her mother is willing to pick her up and take her back to [place] when she is further stabilized. April 05, 2018: Fair response to treatment, the patient was much more calm and cooperative today and thoughts seem more organized. Patient finally got some good rest overnight after receiving to emergency treatment orders and an increase of her Zyprexa dose. The patient continues to insist that she has good support from her family and is willing to follow-up with outpatient care. Continue inpatient psychiatric treatment and stabilization. Continue Zyprexa 10 mg twice a day for mixed manic behaviors. Anticipate discharge as early as tomorrow if patient maintains her stable mood , behavior and thought processes. April 07, 2018 Patient continues to show improved stability and will be discharged tomorrow unless there is some marked regression. Justification for Continued Inpatient Stay: Patient will be tested today to see how well she tolerates in anticipation of discharge.
[2018-04-08 06:27] VITALS: BP 109/75; PULSE 78; RESP 16; TEMP 98; O2SAT 98
[2018-04-08] MEDS: Senna/Docusate Sodium 8.6/50 MG Tablet PO SCH (08:19)
[2018-04-08] MEDS: OLANZapine 10 MG Tablet PO SCH (08:19)
[2018-04-08] MEDS: Ferrous Sulfate 325 MG Tablet PO SCH (08:19)
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
== END 2018-04-08 11:05 | disposition home or self-care (01) | DRG 885 ==
LOC: NEPE 06:40 → NEDA 03-31 08:16 → H270 03-31 11:38
PROVIDERS: ADMIT Psychiatry & Neurology Child & Adolescent Psychiatry; ATTEND Psychiatry & Neurology Child & Adolescent Psychiatry
CPT/HCPCS: 80048; 80053; 80061; 80307; 82728; 83036; 83540; 83550; 83735; 84443; 85025; 90772; 90782; 90791; 96372; 99285; J1200; J1630; J2060; J3410